=== PATIENT | male | born 1955 | race Caucasian/White ===

== ENCOUNTER 2016-10-07 13:02 | Emergency (ER) | payer OTHER ==
--- NOTE | 2016-10-07 14:38 | UC ---
General HPI - HPI Summary HPI Summary: patient started to have a right itchy eye, now has large indurated area under the right eye, mild drainage noted, lower lid is swollen, redness and swelling into the nose as well - History of Current Complaint Chief Complaint: UCEye Stated Complaint: EYE COMPLAINT Time Seen by Provider: 10/07/16 14:01 - Allergy/Home Medications Allergies/Adverse Reactions: Allergies Allergy/AdvReac Type Severity Reaction Status Date / Time Ciprofloxacin [From Cipro] Allergy Intermediate Rash Verified 10/07/16 14:06 Penicillins [PCN] Allergy Intermediate Rash Verified 10/07/16 14:06 Ranitidine [From Zantac] Allergy Intermediate Rash Verified 10/07/16 14:06 iv contrast dye Allergy Severe Swelling Uncoded 10/07/16 14:06 Of Face,Lips,& Throat Home Medications: Home Medications Aspirin EC Low Dose* [Ecotrin EC Low Dose*] 81 mg PO DAILY 10/07/16 [History Confirmed 10/07/16] Atenolol & Chlorthalidone [Tenoretic 50 50-25 mg-] 1 tab PO DAILY 10/07/16 [ History Confirmed 10/07/16] Calcitriol CAP* [Rocaltrol CAP*] 0.5 mcg PO BID 10/07/16 [History Confirmed ] HYDROcodone/ACETAMIN 5-325 MG* [Garland 5-325 TAB*] 1 tab PO BID 10/07/16 [ History Confirmed 10/07/16] Levothyroxine TAB* [Synthroid TAB*] 88 mcg PO DAILY 10/07/16 [History Confirmed 10/07/16] Multivitamins/Minerals TAB* [Thera M Plus TAB*] 1 tab PO DAILY 10/07/16 [ History Confirmed 10/07/16] Omeprazole CAP* [Prilosec CAP* 20 MG] 40 mg PO DAILY 10/07/16 [History Confirmed 10/07/16] Pravastatin (NF) [Pravachol (NF)] 40 mg PO EVERY OTHER DAY 10/07/16 [History Confirmed 10/07/16] Verapamil SR CAP* [Calan Sr CAP*] 180 mg PO DAILY 10/07/16 [History Confirmed ] glipiZIDE TAB* [Glucotrol TAB*] 10 mg PO DAILY 10/07/16 [History Confirmed 10/07] PMH/Surg Hx/FS Hx/Imm Hx Previously Healthy: Yes Endocrine History Of: Reports: Diabetes Cardiovascular History Of: Reports: Cardiac Disorders - thick walled heart, Hypertension Respiratory History Of: Reports: COPD - Surgical History Surgical History: Yes Surgery Procedure, Year, and Place: thyroidectomy - Family History Known Family History: Positive: Hypertension, Respiratory Disease - Social History Alcohol Use: None Substance Use Type: Prescribed Smoking Status (MU): Former Smoker Type: Cigarettes Length of Time of Smoking/Using Tobacco: 2008 Review of Systems Constitutional: Negative Skin: Other - redness and pain on right side of face and nose Eyes: Negative ENT: Negative Respiratory: Negative Cardiovascular: Negative Gastrointestinal: Negative Genitourinary: Negative Motor: Negative Neurovascular: Negative Musculoskeletal: Negative Neurological: Negative Psychological: Negative All Other Systems Reviewed And Are Negative: Yes Physical Exam Triage Information Reviewed: Yes Appearance: Well-Nourished, Ill-Appearing, Pain Distress Vital Signs: Initial Vital Signs Temp 97.6 F 10/07/16 14:11 Pulse 60 10/07/16 14:11 Resp 16 10/07/16 14:11 BP 139/69 10/07/16 14:11 Pulse Ox 100 10/07/16 14:11 Vital Signs Reviewed: Yes Eye Exam: Normal Eyes: Positive: Conjunctiva Inflamed ENT: Positive: Pharynx normal, Pharyngeal erythema, TMs normal Dental Exam: Normal Neck exam: Normal Neck: Positive: Supple, Nontender, No Lymphadenopathy Respiratory Exam: Normal Respiratory: Positive: Chest non-tender, Lungs clear, Normal breath sounds Cardiovascular Exam: Normal Cardiovascular: Positive: RRR, No Murmur, Pulses Normal Abdominal Exam: Normal Abdomen Description: Positive: Nontender, No Organomegaly, Soft Bowel Sounds: Positive: Present Musculoskeletal Exam: Normal Musculoskeletal: Positive: Strength Intact, ROM Intact, No Edema Neurological Exam: Normal Neurological: Positive: Alert, Muscle Tone Normal Psychological Exam: Normal Skin: Positive: Other - large area of erythems on right side of face, under the eye, on the right side of the nose, swelling noted, mild induration palpated, no pustules or fluctuance Course/Dx - Course Course Of Treatment: hx obtained, exam performed, medication reviewed. medication prescribed. - Differential Dx - Multi-Symptom Provider Diagnoses: facial cellulitis Discharge - Discharge Plan Condition: Stable Disposition: HOME Patient Education Materials: Periorbital Cellulitis in Adults (ED) Additional Instructions: take the medication as prescribed, stop using the visine and you may use neatural tears for eye lubrication. increase fluid intake and tylenol for pain or fever. if your symptoms begin to worsen, follow up with medical care.
[2016-10-07 14:49] VITALS: BP 139/69
== END 2016-10-07 14:51 | disposition home or self-care (01) ==
LOC: UCCORT 13:02
DX: H00.032 Abscess of right lower eyelid (principal); Z88.0 Allergy status to penicillin; Z88.1 Allergy status to other antibiotic agents; Z91.041 Radiographic dye allergy status; E11.9 Type 2 diabetes mellitus without complications; Z79.84 Long term (current) use of oral hypoglycemic drugs; I10 Essential (primary) hypertension; J44.9 Chronic obstructive pulmonary disease, unspecified; Z87.891 Personal history of nicotine dependence
CPT/HCPCS: 99212; G0463